=== PATIENT | male | born 1950 | race Caucasian/White ===

== ENCOUNTER → 2017-03-13 | Outpatient (CLI) | payer OTHER ==
[2017-03-13] MEDS: GADOXETATE DISODIUM 2.5 MMOL/10 ML IV (10:11)
== END | disposition home or self-care (01) ==
LOC: MRI 08:48
DX: K76.89 Other specified diseases of liver (principal)
CPT/HCPCS: 74183; A9581

== ENCOUNTER → 2017-06-16 | Outpatient (CLI) | payer OTHER ==
[2017-06-16] MEDS: GADOXETATE DISODIUM 2.5 MMOL/10 ML IV (11:15)
== END | disposition home or self-care (01) ==
LOC: MRI 10:40
DX: C18.7 Malignant neoplasm of sigmoid colon (principal); K76.89 Other specified diseases of liver
CPT/HCPCS: 74183; A9581